=== PATIENT | male | born 1970 | race Caucasian/White ===

== ENCOUNTER 2025-02-15 20:51 | Emergency (ER) | payer BC ==
[2025-02-15 21:07] VITALS: TEMP 98.1
--- NOTE | 2025-02-15 21:21 | ERPHSYRPT ---
- History of Present Illness Patient Subjective Stated Complaint: c/o vomiting. believed he is having a diverticulitis flare-up Triage Nursing Assessment: patient brought to ED by mother kristenpapito c/o abdominal pain and vomiting. states he believes it is a diverticulitis flare-up. bowel sounds heard in all 4 quads, tender to palpation in left lower quad, states his stools are round and ribbon like, hypertensive, afebrile, gait steady, rates pain 6/10, N/V present, doesn't appear to be in any distress at this time. Physician History: Lower abdominal pain, patient states he is having exacerbation of his diverticulitis, he has a longstanding history of diverticulitis and he has been having Pain with having a bowel movement, his last colonoscopy was more than 3 years ago Allergies/Adverse Reactions: No Known Drug Allergies Allergy (Verified 02/15/25 20:56) Hx Tetanus, Diphtheria Vaccination/Date Given: No Hx Influenza Vaccination/Date Given: Yes Hx Pneumococcal Vaccination/Date Given: No Travel Risk - International Travel Have you traveled outside of the country in past 3 weeks: No - Emerging Infectious Disease Are you exhibiting symptoms associated with any current EIDs: Yes Symptoms: Abdominal Pain, Diarrhea, Vomitting - Past Medical History Pertinent Past Medical History: Yes Neurological History: No Pertinent History ENT History: No Pertinent History Cardiac History: Hypertension Respiratory History: No Pertinent History Endocrine Medical History: Diabetes Type II Musculoskeletal History: No Pertinent History, Other GI Medical History: Diverticulitis History: No Pertinent History Psycho-Social History: No Pertinent History Male Reproductive Disorders: No Pertinent History Other Medical History: kidney stone - Past Surgical History Past Surgical History: Yes Neuro Surgical History: No Pertinent History Cardiac: No Pertinent History Respiratory: No Pertinent History Gastrointestinal: No Pertinent History Genitourinary: No Pertinent History Musculoskeletal: No Pertinent History Male Surgical History: No Pertinent History Other Surgical History: reconstructive surgery on left elbow - Social History Smoking Status: Current every day smoker Exposure to second hand smoke: No Drug Use: marijuana - Social Determinants of Health Will the patient participate in the screening: Yes Do you worry about a steady place to live?: No Do you have any problems with any of the following?: No known problems In the past 12 months,have you had to go without utilities?: No Transportation Issues: No Has anyone in your support network made you feel unsafe?: No Have you or anyone in your house had to go w/o enough food: No - Nursing Vital Signs Nursing Vital Signs: Initial Vital Signs Temperature 98.1 F 02/15/25 20:57 Pulse Rate 63 02/15/25 20:57 Respiratory Rate 18 02/15/25 20:57 Blood Pressure 199/110 02/15/25 20:57 O2 Sat by Pulse Oximetry 100 02/15/25 20:57 Pain Scale Pain Intensity 0 - Physical Exam SpO2: 100 Ordered Tests: Active Orders 24 hr Category Date Time Status IV Insertion STAT Care 02/15/25 21:08 Active ABDOMEN AND PELVIS W CONTRAST [CT] Stat Exams 02/15/25 21:08 Completed CBC W DIFF Stat Lab 02/15/25 21:20 Completed CMP Stat Lab 02/15/25 21:20 Completed LIPASE Stat Lab 02/15/25 21:20 Completed Medication Summary Discontinued Medications Generic Name Dose Route Start Last Admin Trade Name Freq PRN Reason Stop Dose Admin Sodium Chloride 500 mls @ 500 mls/hr 02/15/25 21:10 02/15/25 21:32 Sodium Chloride 0.9% 500 Ml IV 02/15/25 22:09 Not Given .Q1H ONE Sodium Chloride Confirm 02/15/25 21:24 Sodium Chloride 0.9% 1000 Ml Administered 02/15/25 21:25 Dose 1,000 mls @ ud .ROUTE .STK-MED ONE Sodium Chloride 500 mls @ 500 mls/hr 02/15/25 21:31 02/15/25 22:33 Sodium Chloride 0.9% 1000 Ml IV 02/15/25 22:30 Infused .Q1H STA Infusion Morphine Sulfate 4 mg 02/15/25 21:08 02/15/25 21:27 Morphine Sulfate 4 Mg/Ml Injection IV 02/15/25 21:09 4 mg STAT ONE Administration Morphine Sulfate Confirm 02/15/25 21:24 Morphine Sulfate 4 Mg/Ml Injection Administered 02/15/25 21:25 Dose 4 mg .ROUTE .STK-MED ONE Ondansetron HCl 4 mg 02/15/25 21:08 02/15/25 21:30 Ondansetron Hcl 4 Mg/2 Ml Vial IV 02/15/25 21:09 4 mg STAT ONE Administration Ondansetron HCl Confirm 02/15/25 21:24 Ondansetron Hcl 4 Mg/2 Ml Vial Administered 02/15/25 21:25 Dose 4 mg .ROUTE .STK-MED ONE Lab/Rad Data: Laboratory Result Diagrams 02/15/25 21:20 02/15/25 21:20 Laboratory Results 02/15/25 02/15/25 Range/Units 21:20 21:20 WBC 12.6 H (4.23-9.07) x10^3/uL RBC 4.64 (4.63-6.08) x10^6/uL Hgb 13.7 (13.7-17.5) g/dL Hct 42.3 (40.1-51.0) % MCV 91.2 (79.0-92.2) fL MCH 29.5 (25.7-32.2) pg MCHC 32.4 (32.3-36.5) g/dL RDW 13.3 (11.6-14.4) % Plt Count 274 (163-337) x10^3/uL MPV 9.4 (9.4-12.4) fL Gran % 79.3 H (34.0-67.9) % Immature Gran % (Auto) 0.3 (0.001-0.429) % Nucleat RBC Rel Count 0.0 (0.00-0.2) % Eos # (Auto) 0.09 (0.04-0.54) x10^3/uL Immature Gran # (Auto) 0.04 H (0.001-0.031) x10^3u/L Absolute Lymphs (auto) 1.79 (1.32-3.57) x10^3/uL Absolute Monos (auto) 0.65 (0.30-0.82) x10^3/uL Absolute Nucleated RBC 0.00 (0.00-0.012) x10^3u/L Lymphocytes % 14.3 L (21.8-53.1) % Monocytes % 5.2 L (5.3-12.2) % Eosinophils % 0.7 L (0.8-7.0) % Basophils % 0.2 (0.2-1.2) % Absolute Granulocytes 9.97 H (1.78-5.38) x10^3/uL Basophils # 0.02 (0.01-0.08) x10^3/uL Sodium 135 (135-145) mmol/L Potassium 3.9 (3.5-5.1) mmol/L Chloride 105 (98-107) mmol/L Carbon Dioxide 21 L (22-30) mmol/L Anion Gap 12.6 (5-15) MEQ/L BUN 15 (9-20) mg/dL Creatinine 1.17 (0.66-1.25) mg/dL Estimated GFR 73.2 ML/MIN Glucose 123 H (74-106) mg/dL Calcium 9.3 (8.4-10.2) mg/dL Total Bilirubin 0.90 (0.2-1.3) mg/dL AST 23 (17-59) U/L ALT 19 (0-50) U/L Alkaline Phosphatase 86 (38-126) U/L Serum Total Protein 8.4 H (6.3-8.2) g/dL Albumin 4.4 (3.5-5.0) g/dL Lipase 500 H (23-300) U/L - Departure Departure Disposition: Home Clinical Impression: Diverticulitis large intestine Qualifiers: Diverticulitis bleeding: without bleeding Diverticulitis complication: without perforation or abscess Qualified Code(s): K57.32 - Diverticulitis of large intestine without perforation or abscess without bleeding Condition: Fair Critical Care Time: No Referrals: JOSUE JIMENEZ [ACTIVE STAFF, [facility]] - Follow up with PCP 4 days Instructions: Diverticulitis Prescriptions: Hydrocodone/APAP 5/325 [[place] 5/325 mg] 1 each PO Q6H PRN PRN #16 tablet MDD 6 PRN Reason: Pain Metronidazole 500 mg [Flagyl 500 MG] 500 mg PO QID #40 tablet levoFLOXacin [Levofloxacin] 750 mg PO DAILY #10 tablet
[2025-02-15] MEDS ORDERED: Zofran 4 MG/2 ML VIAL ONE (21:24)
[2025-02-15] MEDS ORDERED: MORPHINE SULFATE 4 MG INJ ONE (21:24)
[2025-02-15 21:25] LABS: BASOPHIL % 0.2 % (0.2-1.2); Basophil (Absolute #) 0.02 x10^3/uL (0.01-0.08); Eosinophil (Absolute #) 0.09 x10^3/uL (0.04-0.54); Hematocrit 42.3 % (40.1-51.0); Hemoglobin 13.7 g/dL (13.7-17.5); IMMATURE GRAN # 0.04 x10^3u/L (0.001-0.031); IMMATURE GRAN % 0.3 % (0.001-0.429); Lymphocyte (Absolute #) 1.79 x10^3/uL (1.32-3.57); Mean Corpuscular Hemoglobin 29.5 pg (25.7-32.2); Mean Corpuscular Hgb Concent. 32.4 g/dL (32.3-36.5); Monocyte (Absolute #) 0.65 x10^3/uL (0.30-0.82); NUCLEATED RBC # 0.00 x10^3u/L (0.00-0.012); NUCLEATED RBC % 0.0 % (0.00-0.2); Platelet Count 274 x10^3/uL (163-337); Red Blood Count 4.64 x10^6/uL (4.63-6.08); White Blood Count 12.6 x10^3/uL (4.23-9.07)
[2025-02-15] MEDS: MORPHINE SULFATE 4 MG INJ IV ONE (21:27)
[2025-02-15] MEDS: Zofran 4 MG/2 ML VIAL IV ONE (21:30)
[2025-02-15 21:38] LABS: Calcium 9.3 mg/dL (8.4-10.2); Carbon Dioxide 21.0 mmol/L (22-30); Creatinine 1 1.17 mg/dL (0.66-1.25); EST GLOMERULAR FILTRATION RATE 73.2 ML/MIN; Glucose 123.0 mg/dL (74-106); Potassium 3.9 mmol/L (3.5-5.1); SGOT/AST 23.0 U/L (17-59); SGPT/ALT 19.0 U/L (0-50); Total Protein 8.4 g/dL (6.3-8.2)
--- NOTE | 2025-02-15 23:16 | XRAY ---
CLINICAL HISTORY: lower abd pain COMPARISON: CT abdomen and pelvis dated 02/09/2023. TECHNIQUE: Contrast-enhanced CT of the abdomen and pelvis was performed, with the following protocol: axial images were acquired, and coronal and sagittal images were reconstructed. Intravenous contrast was administered. One of the following dose reduction techniques was utilized for this exam: automated exposure control, adjustment of the mA and/or kV according to patient size, and use of iterative reconstruction. FINDINGS: The lower chest demonstrates a 1.4 cm pulmonary nodule in the middle lobe, which is new interval. Stable calcified granulomas are present in the visualized lungs. Abdomen: Liver: The liver is normal in size, shape, and density. Stable right lobe cysts are present. The hepatic vasculature and biliary ducts are unremarkable. Gallbladder and Biliary System: The gallbladder is normal in size and shape. No wall thickening, pericholecystic fluid, or gallstones are identified. The common bile duct is normal in caliber without dilation. Pancreas: The pancreatic head, body, and tail are visualized and appear normal in size and density. No pancreatic masses or calcifications are noted. The pancreatic duct is not dilated. Spleen: The spleen is normal in size, shape, and density. No splenic lesions or masses are identified. Appendix: The appendix is normal in size, without periappendiceal fat stranding and without an appendicolith. There is no evidence of appendiceal abscess or perforation. Kidneys and Adrenal Glands: Both kidneys are normal in size, shape, and position. Cortical thickness is within normal limits. There is now dilatation of the left pelvicalyceal system and ureter, down to the level of the sigmoid colon. It is difficult to assess for ureterolithiasis due to inflammation in the region. Stable small left renal cortical cyst is present. Adrenal glands are unremarkable, with no evidence of masses or hyperplasia. Vascular Structures: Atheromatous calcifications of the abdominal aorta and iliac arteries are present. Pelvis: Urinary Bladder: The urinary bladder is normal in contour and wall thickness. No intraluminal lesions are identified. Prostate: The prostate is normal in size and contour. No focal lesions or masses are identified. Seminal Vesicles: The seminal vesicles are normal in size and appearance. No abnormalities are noted. Peritoneal and Retroperitoneal Structures: No free fluid or abnormal fluid collections are identified within the abdomen or pelvis. No lymphadenopathy is noted. Bowel and Colon: The visualized bowel loops are normal in caliber. No evidence of bowel obstruction is present. Circumferential bowel wall thickening is again seen involving the sigmoid colon, now with pericolic stranding densities (interval new). A rim-enhancing fluid collection with pockets of air is noted adjacent to the sigmoid colon. There is an interval increase in colonic diverticulosis, now seen throughout the colon. Bones and Soft Tissues: The pelvic bones and soft tissues are unremarkable. No fractures or abnormal masses are identified. Stable spondylodegenerative changes of the visualized spine are present. IMPRESSION: 1. Interval increase in colonic diverticulosis. Circumferential bowel wall thickening is again seen involving the sigmoid colon, now with pericolic stranding densities (interval new). Consider diverticulitis; however, a neoplastic process is still not ruled out. Advise clinical correlation. 2. A rim-enhancing fluid collection with pockets of air is noted adjacent to the sigmoid colon, which may represent abscess formation. 3. Mild left hydronephrosis (interval new). It is difficult to assess for ureterolithiasis due to inflammation in the region. 4. A 1.4 cm pulmonary nodule in the middle lobe (interval new). Recommend dedicated chest CT for further evaluation. 5. Stable hepatic cysts. 6. Stable calcified granulomas in the visualized lungs. 7. Stable small left renal cortical cyst (Bosniak I). Electronically Signed by: Perez Wilson MD. (02/15/2025 23:15:20 EDT)
[2025-02-15] MEDS ORDERED: Levofloxacin 500 MG Tablet ONE (23:49)
[2025-02-15] MEDS ORDERED: Flagyl 500 MG ONE (23:49)
[2025-02-15] MEDS: Levofloxacin 500 MG Tablet PO SCH (23:50)
[2025-02-15] MEDS: Flagyl 500 MG PO ONE (23:50)
[2025-02-16 00:07] VITALS: BP 152/84; PULSE 61; RESP 17; O2SAT 99
== END 2025-02-16 00:13 | disposition home or self-care (01) ==
LOC: ED 20:51
DX: K57.32 Diverticulitis of large intestine without perforation or abscess without bleeding (principal); R10.30 Lower abdominal pain, unspecified; I10 Essential (primary) hypertension; E11.9 Type 2 diabetes mellitus without complications; Z79.899 Other long term (current) drug therapy; Z72.0 Tobacco use

== ENCOUNTER 2025-04-03 09:34 | Day surgery (SDC) | payer BC ==
[2025-04-03] MEDS ORDERED: Versed 2 MG/2 ML Injection ONE (13:06)
[2025-04-03] MEDS ORDERED: propofoL IV ONE ×2 (13:06→13:37)
[2025-04-03 14:01] VITALS: RESP 16
[2025-04-03 14:21] VITALS: BP 142/72; PULSE 67; TEMP 97.1; O2SAT 99
--- NOTE | 2025-04-04 15:32 | OP ---
SURGERY DATE/TIME: 04/03/2025 [id number] PREOPERATIVE DIAGNOSIS: Diverticulitis. POSTOPERATIVE DIAGNOSIS: Diverticulosis. PROCEDURE: Colonoscopy. SURGEON: German Greene MD ANESTHESIA: IV. PATIENT CONDITION: Stable. COMPLICATIONS: None. SPECIMEN: None. INDICATIONS: Patient presents with CT scan-confirmed diverticulitis. The symptoms have largely resolved since then, just minimal discomfort every once in a great while, but he is not having symptoms currently. Discussion with the patient. He does want to proceed with colonoscopy. FINDINGS: Fair preparation. Diverticulosis in the sigmoid colon, mild to moderate tortuosity there. DESCRIPTION OF PROCEDURE AND FINDINGS: Patient was brought to the endoscopy suite, routinely positioned and prepared. IV anesthesia induced by Anesthesia. External exam does show external hemorrhoids without thrombosis. Digital rectal exam otherwise normal. Colonoscope inserted and advanced to the cecum, confirmed by the appendiceal orifice and the ileocecal valve. Preparation was [place], fair preparation, over 90% mucosal visualization. Withdrawal time over 6 minutes. There is diverticulosis to the sigmoid colon with some tortuosity there, but the regular colonoscope could easily perform the colonoscopy. Retroflexion normal. Colonoscope withdrawn. Patient tolerated the procedure well, was taken to Recovery in stable condition. RECOMMENDATIONS: For screening purposes, would recommend a 5-year due to the suboptimal prep. We can see him back in the office to discuss any plans for his diverticulosis, diverticulitis history.
== END 2025-04-03 14:39 | disposition home or self-care (01) ==
LOC: SDC 09:34
PROVIDERS: ATTEND Surgery
DX: K57.30 Diverticulosis of large intestine without perforation or abscess without bleeding (principal); K57.92 Diverticulitis of intestine, part unspecified, without perforation or abscess without bleeding; E11.9 Type 2 diabetes mellitus without complications; K64.4 Residual hemorrhoidal skin tags